=== PATIENT | female | born 1980 | race Caucasian/White ===

== ENCOUNTER → 2017-06-03 13:08 | Outpatient (CLI) | payer MEDICARE, MEDICAID, SELFPAY ==
--- NOTE | 2017-06-03 | LES_PTH ---
PATIENT: SUSIE ARORA LOC: [facility] U#:[id number] AGE/SX: 45/F ROOM: RE06/03/[address]: Dr. Eric Schmidt MD : [id number] BED: DIS: SPEC #: [id number] RECD: 06/03/17 13:06 STATUS: SADIE WANGFredy #: [id number] EDISON: 06/03/17 00:[address]: Eric Schmidt DEPT: SURGICAL PATHOLOGY RECD BY: Jaquelin Farias Tissues: Skin of eyelid, NOS Procedures: Surgery Specimen Level IV HEADER OPERATION: Excision conj. lesions PRE-OP DIAGNOSIS: Lesions TISSUE SUBMITTED: RLL MICROSCOPIC DIAGNOSIS RLL lesion, excisional biopsy: Fragments of squamous papilloma. SJ:rika 06/06/17 MICROSCOPIC DESCRIPTION Slides are reviewed. GROSS DESCRIPTION Received in fixative is one container labeled with the patient's name and designated RLL. The specimen consists of two fragments of mckeon-pink soft tissue that in aggregate measure 0.2 x 0.2 x 0.1 cm and 0.1 cm in greatest dimension. The entire specimen is submitted in one cassette. / SJ:rika 06/03/17 TC:1 CPT: 00196
== END ==
PROVIDERS: Visit Provider Ophthalmology
DX: H11.89 Other specified disorders of conjunctiva (principal)
CPT/HCPCS: 88305

== ENCOUNTER 2017-06-25 16:47 | Emergency (ER) | payer MEDICARE, MEDICAID, SELFPAY ==
[2017-06-25 16:50] VITALS: BP 153/96; PULSE 103; RESP 14; TEMP 36.2; O2SAT 96; BMI 34.2
--- NOTE | 2017-06-25 17:48 | NURSING ---
SWAPNA, CRISIS, IN WITH PATIENT
[2017-06-25 17:50] LABS: Absolute Neutrophil Count 4.2 X10^3/uL (2.0-7.7); Basophil# 0.04 X10^3/uL; Basophil% 0.6 % (0-1); Eosinophil# 0.19 X10^3/uL; Hematocrit 37.8 % (37-47); Hemoglobin 12.8 g/dl (12.0-15.0); Lymphocyte % 25.1 % (19-41); Mean Corp Hgb Conc 33.9 g/gl (32-36); Mean Corpuscular Hgb 29.8 pg (27.0-32.0); Mean Corpuscular Volume 88.1 fL (81-99); Mean Platelet Vol. 10.9 fl (6.2-12.0); Monocyte# 0.31 X10^3/uL; Monocyte% 4.9 % (0-10); Neutrophil # 4.22 X10^3/uL (2.7-7.7); Neutrophil % 66.2 % (47-70); Platelet Count 259 K/mm3 (150-450); RBC Distribution Width CV 12.5 % (11.6-14.6); RBC Distribution Width SD 40.3 fl (35.1-43.9); Red Blood Count 4.29 M/mm3 (4.2-5.4); White Blood Count 6.4 K/mm3 (4.4-11.0)
[2017-06-25 17:51] LABS: POSITIVE COUNT NO; POSITIVE DIFFERENTIAL NO; POSITIVE MORPHOLOGY NO
[2017-06-25 18:16] LABS: Anion Gap 9 (5-15); BUN 17 mg/dL (7-18); Calcium,Total 8.9 mg/dL (8.5-10.1); Chloride 104 mmol/L (98-107); EST Glomerular Filtration Rate 66 mL/min (>60); Est Glom Filt Rate - Afr Amer 80 mL/min (>60); Estimated Creatinine Clearance 74.18 ml/min; Glucose 287 mg/dL (74-106); Potassium 4.1 mmol/L (3.5-5.1); Pregnancy, Serum, hCG Quali. NEGATIVE Negative (0-9 Nonpreg); Sodium Level 136 mmol/L (136-145); Thyroid Stim Hormone (TSH) 1.23 uIU/mL (0.358-3.74)
[2017-06-25 18:25] LABS: Bacteria 0 SEEN /hpf (None Seen); Mucous, Urine 0 SEEN /hpf (<or=2+); Red Blood Cells-Urine 0 SEEN /hpf (0-5)
[2017-06-25 18:29] LABS: Color, Urine Straw (Yellow); Glucose, Dipstick 1000 mg/dl (Normal); Ketone-Dipstick 15 mg/dl (Negative); Leukocyte Esterase-Dipstick Negative /ul (Negative); Nitrite-Dipstick Negative (Negative); Occult Blood-Urine Negative /ul (Negative); Protein-Dipstick Negative (Negative); Specific Gravity, Urine 1.015 (1.002-1.030); Urine Bilirubin Dipstick Negative (Negative); Urine Clarity Sl. Cloudy (Clear); Urine Urobilinogen Normal (Normal); Urine pH 6.5 (5.0 - 8.0)
[2017-06-25] MEDS: Acetaminophen 500 MG Tablet 1000 MG PO (18:35)
[2017-06-25 18:45] LABS: Squamous Epithelial Cells - UA 0-5 SEEN /hpf (5-10)
[2017-06-25 18:47] LABS: White Blood Cells 0-5 SEEN /hpf (0-5)
[2017-06-25 18:49] LABS: Amphetamine Urine VISTA NEGATIVE (<1000 ng/mL); Barbiturate Urine VISTA NEGATIVE (< 200 ng/mL); Benzodiazepine Urine VISTA NEGATIVE (< 200 ng/mL); Cocaine Urine VISTA NEGATIVE (< 300 ng/mL); Ecstacy Urine VISTA NEGATIVE (< 500 ng/mL); Methadone Urine VISTA NEGATIVE (< 300 ng/mL); PCP Urine VISTA NEGATIVE (< 25 ng/mL); THC Urine VISTA NEGATIVE (< 50 ng/mL); Vista UDS pH Range 7
--- NOTE | 2017-06-25 18:52 | ED.VISSUMM ---
- ER Visit Summary Date of Service: 06/25/17 Chief Complaint: Suicidal ideation History of Present Illness: The patient is a 37 F with a history of bipolar and schizoaffective disorder. Patient reports multiple stressors of the last couple of weeks with several deaths in people who are close to her. She reports increase in visual and auditory hallucinations and states she is having trouble determining what is real. Patient reports she has multiple ideas on how to hurt herself, but does not have one concrete plan. She states that she knows she is not safe alone. She does have a history of diabetes and has an insulin pump. Patient states her blood sugars have been elevated recently. Physical Examination: Blood pressure is 153/96, otherwise vitals normal. Patient sitting upright in bed no acute distress. She is alert and cooperative. Head neck examination is unremarkable. Heart is regular rate and rhythm. On lung sounds are clear. Abdomen is soft nontender. Extremity examination reveals no rash or lesions. Psych exam reveals continued suicidal thoughts. She does admit to visual and auditory hallucinations. Test Results: CBC and chemistry studies are significant for glucose of 287, otherwise normal. Urinalysis shows glucose but no sign of infection. Patency test negative. TSH is normal. Tox and EtOH are negative. Emergency Department Course and Treatment: Patient is given Tylenol for mild headache. Joseline from the [facility] is here to evaluate the patient. Patient will require transfer for definitive care and treatment. Treatment Plan: [] Disposition: Transfer Impression: Suicidal ideation This note was generated with [employer] dictation software. It may contain incorrect words, spelling, and punctuation that were not noted in review of the chart prior to signing ED Disposition - Plan for ED Patient: Chief Complaint: Suicidal Referrals: Sapphire Andersen MD [Primary Care Provider] -
[2017-06-25 18:58] VITALS: BP 145/70; PULSE 80; RESP 14; O2SAT 99
[2017-06-25 19:45] VITALS: BP 144/92; PULSE 69; RESP 12; O2SAT 97
[2017-06-25 20:26] VITALS: RESP 13
[2017-06-25 21:02] VITALS: RESP 14
[2017-06-25] MEDS: Topiramate 25 MG Tablet 75 MG PO (21:02)
[2017-06-25] MEDS: RisperiDONE 1 MG Tablet PO (21:02)
[2017-06-25 22:21] VITALS: BP 144/92; PULSE 69; RESP 14; TEMP 36.2; O2SAT 98
== END 2017-06-25 22:20 | disposition short-term general hospital (02) ==
LOC: ED 18:35
PROVIDERS: Emergency Provider Emergency Medicine; Family Provider Family Medicine; PCP Family Medicine
DX: R45.851 Suicidal ideations (principal); F25.9 Schizoaffective disorder, unspecified; F32.9 Major depressive disorder, single episode, unspecified; E11.9 Type 2 diabetes mellitus without complications; J45.909 Unspecified asthma, uncomplicated; I10 Essential (primary) hypertension; Z72.0 Tobacco use; Z96.41 Presence of insulin pump (external) (internal); Z79.4 Long term (current) use of insulin; Z79.899 Other long term (current) drug therapy
CPT/HCPCS: 80048; 80307; 80320; 81001; 84443; 84703; 85025; 99285; G0480

== ENCOUNTER 2017-11-22 11:30 | Emergency (ER) | payer MEDICARE, MEDICAID, SELFPAY ==
[2017-11-22] VITALS (12 sets, daily range): BP systolic 125–160; BP diastolic 81–100; PULSE 76–119; RESP 14–18; TEMP 36.5; O2SAT 95–100; BMI 31.3
[2017-11-22 12:07] LABS: Absolute Lymphocyte Count 1.16 X10^3/ul (0.83-4.51); Absolute Neutrophil Count 5.5 X10^3/uL (2.0-7.7); Basophil# 0.04 X10^3/uL; Basophil% 0.6 % (0-1); Eosinophil# 0.01 X10^3/uL; Eosinophils% 0.1 % (0-5); Hematocrit 40.5 % (37-47); Hemoglobin 13.4 g/dl (12.0-15.0); Lymphocyte # 1.16 X10^3/ul (4.0); Lymphocyte % 16.5 % (19-41); Mean Corp Hgb Conc 33.1 g/gl (32-36); Mean Corpuscular Hgb 29.4 pg (27.0-32.0); Mean Corpuscular Volume 88.8 fL (81-99); Mean Platelet Vol. 10.7 fl (6.2-12.0); Monocyte# 0.36 X10^3/uL; Monocyte% 5.1 % (0-10); Neutrophil # 5.46 X10^3/uL (2.7-7.7); Neutrophil % 77.6 % (47-70); Platelet Count 279 K/mm3 (150-450); RBC Distribution Width CV 12.6 % (11.6-14.6); RBC Distribution Width SD 39.9 fl (35.1-43.9); Red Blood Count 4.56 M/mm3 (4.2-5.4)
[2017-11-22 12:08] LABS: POSITIVE COUNT NO; POSITIVE DIFFERENTIAL NO; POSITIVE MORPHOLOGY NO
[2017-11-22 12:25] LABS: Amphetamine Urine VISTA NEGATIVE (<1000 ng/mL); Barbiturate Urine VISTA NEGATIVE (< 200 ng/mL); Benzodiazepine Urine VISTA NEGATIVE (< 200 ng/mL); Cocaine Urine VISTA NEGATIVE (< 300 ng/mL); Ecstacy Urine VISTA NEGATIVE (< 500 ng/mL); Methadone Urine VISTA NEGATIVE (< 300 ng/mL); PCP Urine VISTA NEGATIVE (< 25 ng/mL); THC Urine VISTA NEGATIVE (< 50 ng/mL); Vista UDS pH Range 7
[2017-11-22 12:26] LABS: Anion Gap 8 (5-15); BUN 14 mg/dL (7-18); BUN/Creat Ratio 9.9 RATIO (10-20); Calcium,Total 9.5 mg/dL (8.5-10.1); Chloride 106 mmol/L (98-107); Creatinine, Serum 1.42 mg/dL (0.55-1.02); EST Glomerular Filtration Rate 44 mL/min (>60); Est Glom Filt Rate - Afr Amer 53 mL/min (>60); Estimated Creatinine Clearance 52.24 ml/min; Glucose 256 mg/dL (74-106); Pregnancy, Serum, hCG Quali. NEGATIVE Negative (0-9 Nonpreg); Sodium Level 136 mmol/L (136-145)
[2017-11-22] MEDS: busPIRone 5 MG Tablet 20 MG PO ×2 (12:39→20:01)
--- NOTE | 2017-11-22 12:50 | ED.RN ---
NOTIFIED CRISIS THAT PT IS MEDICALLY CLEARED AND READY TO BE EVALUATED
--- NOTE | 2017-11-22 13:33 | ED.RN ---
DALE IS HERE TO SEE PATIENT.
--- NOTE | 2017-11-22 15:23 | ED.RN ---
after meal bg 265. insulin pump managed per pt.
[2017-11-22 15:31] LABS: Bedside Glucose 265 mg/dL (70-110)
--- NOTE | 2017-11-22 15:34 | ED.RN ---
CALLED CRISIS TO NOTIFY THEM THAT [facility] DENIED PT; STATED THAT THEY ARE NOT APPROPRIATE
--- NOTE | 2017-11-22 15:51 | ED.VISSUMM ---
- ER Visit Summary Date of Service: 11/22/17 Chief Complaint: Suicidal ideation and paranoia History of Present Illness: The patient is a 37 F presents for suicidal ideation and paranoia. Patient has history of schizoaffective disorder and is on medication for it. One month ago she was started on Norvasc for blood pressure control, and since then she feels like it is interacting with her Topamax, as she has been having suicidal thoughts, increased depression, and hallucinations. Now for the last week she is having paranoia, and feels people are trying to poison her. She also feels she is being watched with cameras everywhere. She is only eating toast and coffee because she feels it is the only safe thing to eat. She does not have a suicidal plan, but she thinks about suicide often. She saw her primary care nurse practitioner yesterday who changed her Norvasc to HCTZ. She denies any constitutional symptoms or any other complaints other than the psychiatric complaints. Physical Examination: Vital signs: afebrile, hemodynamically stable, no hypoxia on room air General: well nourished, well developed, in no distress Skin: warm, dry, no rash, no pallor HEENT: normocephalic and atraumatic; PERRL, EOMI, moist mucous membranes Cardiovascular: regular rate and rhythm without murmurs, no peripheral edema, 2+ pulses all distal extremities Respiratory: No increased work of breathing, lungs are clear to auscultation bilaterally, no rales, rhonchi or wheezing Abdominal: Abdomen is soft, nontender with normoactive bowel sounds, no guarding or rebound, no masses MSK: Moves all extremities, no deformities, normal strength Neuro: Awake and alert, oriented ?4. No facial droop, sensation and motor function intact and symmetric Psych: Positive for depressed affect, suicidal thoughts, delusional behavior, paranoia. No homicidal thoughts. Test Results: Abnormal Lab Results 11/22/17 11/22/17 11/22/17 11:50 11:53 11:53 WBC 7.0 RBC 4.56 Hgb 13.4 Hct 40.5 MCV 88.8 MCH 29.4 MCHC 33.1 RDW 12.6 RDW Differential 39.9 Plt Count 279 MPV 10.7 Immature Gran % (Auto) 0.100 Neut % (Auto) 77.6 H Lymph % (Auto) 16.5 L [place] % (Auto) 5.1 Eos % (Auto) 0.1 Baso % (Auto) 0.6 Absolute Neuts (auto) 5.5 Absolute Lymphs (auto) 1.16 Total Counted Not Reportable Sodium 136 Potassium 4.0 Chloride 106 Carbon Dioxide 22.0 Anion Gap 8 BUN 14 Creatinine 1.42 H Estim Creat Clear Calc 52.24 Est GFR (MDRD) Af Amer 53 L Est GFR (MDRD) Non-Af 44 L BUN/Creatinine Ratio 9.9 L Glucose 256 H Calcium 9.5 Serum , Qual Urine Opiates Screen NEGATIVE Urine Methadone Screen NEGATIVE Ur Barbiturates Screen NEGATIVE Ur Phencyclidine Scrn NEGATIVE Ur Amphetamines Screen NEGATIVE U Methamphetamin-MDMA NEGATIVE U Benzodiazepines Scrn NEGATIVE Urine Cocaine Screen NEGATIVE U Cannabinoids Screen NEGATIVE Ur Drug Screen Comment Ethyl Alcohol POC Glucose 11/22/17 11/22/17 11/22/17 11:53 11:53 15:22 WBC RBC Hgb Hct MCV MCH MCHC RDW RDW Differential Plt Count MPV Immature Gran % (Auto) Neut % (Auto) Lymph % (Auto) [place] % (Auto) Eos % (Auto) Baso % (Auto) Absolute Neuts (auto) Absolute Lymphs (auto) Total Counted Sodium Potassium Chloride Carbon Dioxide Anion Gap BUN Creatinine Estim Creat Clear Calc Est GFR (MDRD) Af Amer Est GFR (MDRD) Non-Af BUN/Creatinine Ratio Glucose Calcium Serum , Qual NEGATIVE Urine Opiates Screen Urine Methadone Screen Ur Barbiturates Screen Ur Phencyclidine Scrn Ur Amphetamines Screen U Methamphetamin-MDMA U Benzodiazepines Scrn Urine Cocaine Screen U Cannabinoids Screen Ur Drug Screen Comment Ethyl Alcohol 5.0 POC Glucose 265 H Emergency Department Course and Treatment: Patient was given her morning doses of BuSpar and cyclobenzaprine, as she did not take them prior to coming to the emergency department. He states she has sciatic back pain in the cyclobenzaprine helps. Medical screening was performed, and patient was medically cleared for evaluation by crisis counselor. Patient had a negative tox and alcohol screen. negative. Patient was evaluated and deemed appropriate for inpatient management. She is currently being considered by [facility] for acceptance for further inpatient management of her psychiatric conditions. Disposition is pending acceptance by [facility] or by another facility. Treatment Plan: [] Disposition: Transfer Impression: Suicidal ideation, acute psychosis with paranoia This note was generated with [employer] dictation software. It may contain incorrect words, spelling, and punctuation that were not noted in review of the chart prior to signing ED Disposition - Plan for ED Patient: Chief Complaint: Suicidal Referrals: Sapphire Andersen MD [Primary Care Provider] -
--- NOTE | 2017-11-22 16:04 | ED.RN ---
SPOKE WITH DALE AND NOTIFIED HER THAT PT WAS DECLINED FOR ADMISSION TO [place]
--- NOTE | 2017-11-22 17:10 | ED.RN ---
DALE WITH CRISIS; AMRITA WILL BE WASTE COLLECTION DRIVER TONIGHT AND IS TAKING OVER THE CASE AND WILL BE ON WITH ANY QUESTIONS. THEY WILL UPDATE US THEY KNOW
[2017-11-22 17:40] LABS: Bedside Glucose 182 mg/dL (70-110)
[2017-11-22] MEDS: Ondansetron ODT 4 MG Tablet PO (18:05)
[2017-11-22] MEDS: Acetaminophen 500 MG Tablet 1000 MG PO ×2 (18:28→22:35)
[2017-11-22 19:46] LABS: Bedside Glucose 156 mg/dL (70-110)
[2017-11-22] MEDS: RisperiDONE 0.5 MG Tablet 2 MG PO (20:00)
[2017-11-22] MEDS: Topiramate 25 MG Tablet 75 MG PO (20:01)
--- NOTE | 2017-11-22 20:17 | ED.RN ---
THIS NURSE SPOKE WITH [facility], THEY ARE REFUSING THE PT BECAUSE SHE HAS AN INSULIN PUMP. THE NURSE AT [facility] WAS INFORMED THAT THE PT MANAGES HER OWN INSULIN PUMP. THE NURSE STATES THE DOCTORS AT [facility] ARE NOT ABLE TO MANAGE AN INSULIN PUMP
--- NOTE | 2017-11-22 21:12 | ED.RN ---
PT UPDATED THAT SHE HAS BEEN REFUSED BY [facility] AFTER THIS RN HAD CALLED REPORT. PT INFORMED OF AWAITING COUNSELOR, AND THAT SHE WOULD BE HERE IN ER UNTIL PLACED.
[2017-11-22] MEDS: Meloxicam 15 MG Tablet PO (22:35)
[2017-11-22 23:41] LABS: Bedside Glucose 220 mg/dL (70-110)
[2017-11-23 00:42] VITALS: BP 144/82; PULSE 87; RESP 15; TEMP 36.5; O2SAT 95
[2017-11-23] MEDS: Ondansetron ODT 4 MG Tablet PO (01:15)
== END 2017-11-23 01:17 ==
PROVIDERS: Emergency Provider Emergency Medicine; Family Provider Family Medicine; PCP Family Medicine
DX: R45.851 Suicidal ideations (principal); F22 Delusional disorders; F25.9 Schizoaffective disorder, unspecified; I10 Essential (primary) hypertension; Z87.891 Personal history of nicotine dependence; Z79.4 Long term (current) use of insulin; Z79.899 Other long term (current) drug therapy
CPT/HCPCS: 80048; 80307; 80320; 82962; 84703; 85025; 99284; G0480

== ENCOUNTER 2018-04-05 23:57 | Emergency (ER) | payer MEDICARE, MEDICAID, SELFPAY ==
[2018-03-26 12:36] VITALS: BMI 41.0
[2018-04-06] VITALS (9 sets, daily range): BP systolic 149–162; BP diastolic 92–100; PULSE 84–94; RESP 13–18; TEMP 36.1–36.3; O2SAT 97–100; BMI 42.1
[2018-04-06 00:52] LABS: Absolute Lymphocyte Count 1.84 X10^3/ul (0.83-4.51); Absolute Neutrophil Count 4.9 X10^3/uL (2.0-7.7); Basophil# 0.03 X10^3/uL; Basophil% 0.4 % (0-1); Eosinophil# 0.15 X10^3/uL; Hematocrit 36.1 % (37-47); Lymphocyte # 1.84 X10^3/ul (4.0); Lymphocyte % 24.7 % (19-41); Mean Corp Hgb Conc 33.2 g/gl (32-36); Mean Corpuscular Hgb 29.5 pg (27.0-32.0); Mean Corpuscular Volume 88.7 fL (81-99); Mean Platelet Vol. 10.3 fl (6.2-12.0); Monocyte# 0.47 X10^3/uL; Monocyte% 6.3 % (0-10); Neutrophil # 4.94 X10^3/uL (2.7-7.7); Neutrophil % 66.5 % (47-70); Platelet Count 221 K/mm3 (150-450); RBC Distribution Width CV 13.1 % (11.6-14.6); RBC Distribution Width SD 42.4 fl (35.1-43.9); Red Blood Count 4.07 M/mm3 (4.2-5.4); White Blood Count 7.4 K/mm3 (4.4-11.0)
[2018-04-06 00:53] LABS: POSITIVE COUNT NO; POSITIVE DIFFERENTIAL NO; POSITIVE MORPHOLOGY NO
--- NOTE | 2018-04-06 00:55 | ED.RN ---
NOTIFIED SHERIFF'S OFFICER AT [facility] THAT PT NEEDS TO BE SEEN. SHERIFF'S OFFICER STATED SHE WILL LET ROXANN KNOW.
--- NOTE | 2018-04-06 00:58 | ED.RN ---
ROXANN FROM CRISIS STATED SHE IS AT A DIFFERENT FACILITY. SHE WILL BE HERE TO SEE PT WHEN SHE IS DONE.
[2018-04-06 01:09] LABS: ALB/GLOB Ratio 1.1 RATIO (0.9-2.4); AST(SGOT) 11 U/L (15-37); Alanine Aminotransfer ALT/SGPT 19 U/L (13-56); Albumin, Serum 3.6 g/dL (3.2-5.0); Alkaline Phosphatase 113 U/L (45-117); Anion Gap 10 (5-15); BUN 16 mg/dL (7-18); BUN/Creat Ratio 16.2 RATIO (10-20); Calcium,Total 8.7 mg/dL (8.5-10.1); Chloride 103 mmol/L (98-107); Creatinine, Serum 0.99 mg/dL (0.55-1.02); EST Glomerular Filtration Rate 66 mL/min (>60); Est Glom Filt Rate - Afr Amer 80 mL/min (>60); Estimated Creatinine Clearance 74.19 ml/min; Globulin 3.4 g/dL (2.2-4.2); Glucose 180 mg/dL (74-106); Potassium 3.4 mmol/L (3.5-5.1); Sodium Level 136 mmol/L (136-145)
[2018-04-06 01:12] LABS: Pregnancy, Serum, hCG Quali. NEGATIVE Negative (0-9 Nonpreg)
[2018-04-06 01:17] LABS: Amphetamine Urine VISTA NEGATIVE (<1000 ng/mL); Barbiturate Urine VISTA NEGATIVE (< 200 ng/mL); Benzodiazepine Urine VISTA NEGATIVE (< 200 ng/mL); Cocaine Urine VISTA NEGATIVE (< 300 ng/mL); Ecstacy Urine VISTA NEGATIVE (< 500 ng/mL); Methadone Urine VISTA NEGATIVE (< 300 ng/mL); PCP Urine VISTA NEGATIVE (< 25 ng/mL); THC Urine VISTA NEGATIVE (< 50 ng/mL); Vista UDS pH Range 6
[2018-04-06 01:19] LABS: Alcohol, Blood (Medical)-Serum < 3.0 mg/dL
--- NOTE | 2018-04-06 01:41 | ED.RN ---
PT ARRIVES WITH THE FOLLOWING BELONGINGS: PINK T SHIRT, GARNER HOODED SWEATSHIRT, GARNER TENNIS SHOES, SWEATPANTS, UNDERWEAR, AND BRA. BLUE DUFFLE BAG WITH: GEL PENS IN GEL PEN CASE, CELLPHONE AND DOCUMENTATION CONSULTANT, MED LIST, BOOKS, EXTRA PANTS, UNDERWEAR, SOCKS, SHIRTS AND A SWEATER. ALL BELONGINGS LABELED AND PLACED IN BELONGING BIN.
[2018-04-06 01:42] LABS: Bedside Glucose 123 mg/dL (70-110)
--- NOTE | 2018-04-06 01:46 | ED.RN ---
PT WITH TWO QUARTER SIZED LERNER ON LEFT FOREARM THAT PT HAD SCRATCHED SELF WITH RAZOR BLADE. WOUND DRESSED BY THIS RN.
--- NOTE | 2018-04-06 01:49 | ED.VISSUMM ---
- ER Visit Summary Date of Service: 04/06/18 Chief Complaint: Suicidal ideation History of Present Illness: The patient is a 38 F with a history of schizoaffective disorder. She is hearing voices that are telling her to overdose or to cut her wrists. She did have some abrasions to her wrists but did not cut deeply. She has a history of diabetes and wears an insulin pump. Physical Examination: Blood pressure 162/100. Otherwise vitals normal. Afebrile. Alert and oriented. No acute distress. Depressed mood and flat affect. Heart regular. Lungs clear. Skin appears normal except for some abrasions to her wrists. Nothing deep. Test Results: Labs, test, drug screen, alcohol all unremarkable. Emergency Department Course and Treatment: Patient had suicide precautions. No history of ingestion or other attempts. No other diagnostic testing is indicated. Patient will be monitored. Crisis was contacted for evaluation and placement. Treatment Plan: As above Disposition: Transfer pending crisis evaluation Impression: 1. Suicidal ideation This note was generated with [employer] dictation software. It may contain incorrect words, spelling, and punctuation that were not noted in review of the chart prior to signing ED Disposition - Plan for ED Patient: Chief Complaint: Suicidal Referrals: Sapphire Andersen MD [Primary Care Provider] -
--- NOTE | 2018-04-06 04:12 | ED.RN ---
ROXANN FROM CRISIS CALLED AND STATED SHE IS ON THE WAY TO SEE THIS PT.
--- NOTE | 2018-04-06 04:27 | ED.RN ---
ROXANN FROM CRISIS IS HERE TO SEE PT.
--- NOTE | 2018-04-06 04:43 | ED.RN ---
PT ADJUSTING INSULIN PUMP. PT GIVEN ZAHIRA CRACKERS AND ORANGE JUICE. PT INFORMED THAT IN 20-30 MINUTES WE WILL RECHECK BLOOD SUGAR. IF IT REMAINS LOW WE WILL DISCONNECT INSULIN PUMP PER DR WISDOM
[2018-04-06 04:46] LABS: Bedside Glucose 48 mg/dL (70-110)
[2018-04-06 05:11] LABS: Bedside Glucose 101 mg/dL (70-110)
--- NOTE | 2018-04-06 06:18 | ED.RN ---
[facility] CALLED CONCERNED WITH PT INSURANCE. REGISTRATION FAXING INSURANCE INFORMATION TO [facility]
[2018-04-06] MEDS: Insulin Lispro 100 UNIT/ML INSULN.PEN 8 UNIT SC (07:36)
[2018-04-06 08:26] LABS: Bedside Glucose 313 mg/dL (70-110)
== END 2018-04-06 08:25 ==
PROVIDERS: Emergency Provider Emergency Medicine; Family Provider Family Medicine; PCP Family Medicine
DX: R45.851 Suicidal ideations (principal); E10.9 Type 1 diabetes mellitus without complications; S60.812A Abrasion of left wrist, initial encounter; S60.811A Abrasion of right wrist, initial encounter; I10 Essential (primary) hypertension; F25.9 Schizoaffective disorder, unspecified; Z96.41 Presence of insulin pump (external) (internal); Z79.4 Long term (current) use of insulin; Z79.899 Other long term (current) drug therapy; W26.9XXA Contact with unspecified sharp object(s), initial encounter; Y93.9 Activity, unspecified; Y92.9 Unspecified place or not applicable; Y99.9 Unspecified external cause status
CPT/HCPCS: 80053; 80307; 80320; 82962; 84703; 85025; 99285; G0480

== ENCOUNTER 2018-07-19 11:46 | Emergency (ER) | payer MEDICARE, SELFPAY ==
[2018-04-06] VITALS: BMI 42.1
[2018-07-19 11:48] VITALS: BP 128/75; PULSE 87; RESP 16; TEMP 36.7; O2SAT 97; BMI 41.1
--- NOTE | 2018-07-19 12:00 | CM.ED ---
SOCIAL WORK NOTE CALL TO THE [facility] TO INQUIRE ABOUT PATIENT AND PLAN, SPOKE WITH DALE. PER MARCE HUNTER TO BE OVER TO ASSESS PATIENT AND ANTICIPATE PATIENT WILL REQUIRE INPATIENT PSYCH HOSPITALIZATION. PATIENT IS HEARING VOICES, RECENT HX OF SUICIDE ATTEMPT. PER [facility]ALE, DOES NOT BELIEVE PATIENT TO BE SUICIDAL OR HOMICIDAL AT THIS TIME. UPDATED RECEIVER STOCKER AND CHARGE NURSE. WILL FOLLOW AND ASSIST NEEDED. JAE VELASQUEZ, SUPERINTENDENT SERVICE, DATA WAREHOUSING ENGINEER.
[2018-07-19 12:12] LABS: Absolute Neutrophil Count 5.2 X10^3/uL (2.0-7.7); Basophil# 0.03 X10^3/uL; Basophil% 0.4 % (0-1); Eosinophil# 0.06 X10^3/uL; Eosinophils% 0.9 % (0-5); Hemoglobin 12.5 g/dl (12.0-15.0); Mean Corp Hgb Conc 32.9 g/gl (32-36); Mean Corpuscular Hgb 28.3 pg (27.0-32.0); Mean Corpuscular Volume 86.2 fL (81-99); Monocyte# 0.25 X10^3/uL; Monocyte% 3.6 % (0-10); Neutrophil # 5.24 X10^3/uL (2.7-7.7); Neutrophil % 74.8 % (47-70); Platelet Count 238 K/mm3 (150-450); RBC Distribution Width CV 12.9 % (11.6-14.6); RBC Distribution Width SD 40.7 fl (35.1-43.9); Red Blood Count 4.41 M/mm3 (4.2-5.4)
[2018-07-19 12:14] LABS: Bacteria 0 SEEN /hpf (None Seen); Mucous, Urine 0 SEEN /hpf (<or=2+); Red Blood Cells-Urine 0 SEEN /hpf (0-5); White Blood Cells 0 SEEN /hpf (0-5)
[2018-07-19 12:18] LABS: POSITIVE COUNT NO; POSITIVE DIFFERENTIAL NO; POSITIVE MORPHOLOGY NO
[2018-07-19 12:20] LABS: Color, Urine Yellow (Yellow); Glucose, Dipstick Normal (Normal); Ketone-Dipstick Negative (Negative); Leukocyte Esterase-Dipstick Negative /ul (Negative); Nitrite-Dipstick Negative (Negative); Occult Blood-Urine Negative /ul (Negative); Protein-Dipstick Negative (Negative); Urine Bilirubin Dipstick Negative (Negative); Urine Clarity Sl. Cloudy (Clear); Urine Urobilinogen Normal (Normal)
[2018-07-19 12:21] LABS: Anion Gap 8 (5-15); BUN 14 mg/dL (7-18); Calcium,Total 8.6 mg/dL (8.5-10.1); Chloride 104 mmol/L (98-107); Creatinine, Serum 1.17 mg/dL (0.55-1.02); EST Glomerular Filtration Rate 55 mL/min (>60); Est Glom Filt Rate - Afr Amer 66 mL/min (>60); Estimated Creatinine Clearance 62.78 ml/min; Glucose 242 mg/dL (74-106); Potassium 3.9 mmol/L (3.5-5.1); Sodium Level 136 mmol/L (136-145)
[2018-07-19 12:22] LABS: Squamous Epithelial Cells - UA 0-5 SEEN /hpf (5-10)
--- NOTE | 2018-07-19 12:28 | NURSING ---
MARCE, CRISIS, HERE FOR PATIENT
--- NOTE | 2018-07-19 12:44 | ED.DCSUM_ITS ---
- ER Visit Summary Date of Service: 07/19/18 Chief Complaint: Paranoid ideations History of Present Illness: The patient is a 38 F who presents with increasing paranoid ideations over the past week. Patient states she feels like everybody is trying to kill her. Patient denies any suicidal or homicidal ideations. Patient admits to some auditory and visual hallucinations. Patient states she has a history of schizoaffective disorder. Physical Examination: Vital signs are stable. Patient is afebrile. Patient is in no acute distress. Pupils are equal, round, and reactive to light bilaterally. Extraocular muscles are intact. Conjunctiva is clear. Oral mucosa is pink and moist. Oropharynx is clear. Neck is supple. Trachea is midline. There is no JVD noted. Heart was regular rate and rhythm. Lungs are clear and equal bilateral. Abdomen is soft and nontender. Cranial nerves II through XII are intact. There are no focal motor or sensory deficits noted. Test Results: CBC, basic metabolic profile, urinalysis, urine tox screen, serum hCG, and serum alcohol level were obtained and were all within normal limits. Emergency Department Course and Treatment: Crisis counselor was in to evaluate the patient. She was informed that the patient has been taking extra doses of her buspirone to try to get rid of the visual and auditory hallucinations. Crisis will attempt to transfer the patient to a mental health facility. Patient understood and was agreeable with the plan. All questions were answered. Disposition: Transfer to mental health facility Impression: Schizoaffective disorder This note was generated with [email or web address] dictation software. It may contain incorrect words, spelling, and punctuation that were not noted in review of the chart prior to signing ED Disposition - Plan for ED Patient: Disposition: Psychiatric Hospital or Unit Diagnosis: Schizoaffective disorder Referrals: Sapphire Andersen MD [Primary Care Provider] -
[2018-07-19 12:51] LABS: Pregnancy, Serum, hCG Quali. NEGATIVE Negative (0-9 Nonpreg)
[2018-07-19 13:11] LABS: Amphetamine Urine VISTA NEGATIVE (<1000 ng/mL); Barbiturate Urine VISTA NEGATIVE (< 200 ng/mL); Benzodiazepine Urine VISTA NEGATIVE (< 200 ng/mL); Cocaine Urine VISTA NEGATIVE (< 300 ng/mL); Ecstacy Urine VISTA NEGATIVE (< 500 ng/mL); Methadone Urine VISTA NEGATIVE (< 300 ng/mL); PCP Urine VISTA NEGATIVE (< 25 ng/mL); THC Urine VISTA NEGATIVE (< 50 ng/mL); Vista UDS pH Range 7
--- NOTE | 2018-07-19 13:45 | CM.ED ---
SOCIAL WORK NOTE MARCE FROM CRISIS HERE AND ASSESSED PT. PT REQUIRING INPATIENT PSYCH HOSPITALIZATION. MARCE TO WORK ON PLACEMENT AT THIS TIME. JAE VELASQUEZ, MACHINE CAPTAIN, CONCERT PIANIST.
--- NOTE | 2018-07-19 15:19 | ED.RN ---
PT ADAMANTLY DENIES TAKING ANY MEDICATIONS NOT ON MED LIST FROM [facility] OTHER THAN INSULIN AND INVEGA INJ. PT HOWEVER TOLD COUNSELOR SHE IS TAKING LARGE AMOUNTS OF BUSPAR TO COMBAT ANXIETY. THIS RN AND COUNSELOR WENT IN TO ROOM TOGETHER, PT NOW ADMITS TO THIS RN SHE IS TAKING BUSPAR WELL. SHORTLY AFTER PT BECAME TEARFUL, REQUESTS DOSE OF BUSPAR FOR ANXIETY. REQUEST RELAYED TO .
[2018-07-19 15:43] VITALS: BP 151/88; PULSE 88; RESP 16; O2SAT 97
--- NOTE | 2018-07-19 17:08 | CM.ED ---
SOCIAL WORK NOTE UPDATED BY MARCE WITH CRISIS, PT ACCEPTED TO [facility]. [facility] TO UPDATE NURSING AT THIS TIME. JAE VELASQUEZ, ISOTOPE TECHNICIAN, MERCHANDISE ADJUSTMENT CLERK.
--- NOTE | 2018-07-19 18:00 | NURSING ---
[facility] 310 BED 2
--- NOTE | 2018-07-19 18:15 | NURSING ---
CALLED [facility] FOR TRANSPORT. ETA IS ABOUT 1/2 HR
[2018-07-19] MEDS: Ondansetron ODT 4 MG Tablet PO (19:04)
[2018-07-19 19:07] VITALS: BP 137/71; PULSE 87; RESP 16; O2SAT 97
== END 2018-07-19 19:09 ==
PROVIDERS: Emergency Provider Emergency Medicine; Family Provider Family Medicine; PCP Family Medicine
DX: F25.9 Schizoaffective disorder, unspecified (principal); F41.9 Anxiety disorder, unspecified; F43.10 Post-traumatic stress disorder, unspecified; F31.9 Bipolar disorder, unspecified; E03.9 Hypothyroidism, unspecified; I10 Essential (primary) hypertension; E11.9 Type 2 diabetes mellitus without complications; Z96.41 Presence of insulin pump (external) (internal); Z79.84 Long term (current) use of oral hypoglycemic drugs; Z79.899 Other long term (current) drug therapy
CPT/HCPCS: 36415; 80048; 80307; 80320; 81001; 84703; 85025; 99283; G0480

== ENCOUNTER 2019-01-06 16:47 | Emergency (ER) | payer MEDICARE, SELFPAY ==
[2019-01-06 16:50] VITALS: BP 118/77; PULSE 68; RESP 16; TEMP 36.8; O2SAT 98; BMI 39.4
[2019-01-06] MEDS: 0.9% Normal Saline 1,000 ML 1000 ML IV ×2 (17:00→18:30)
--- NOTE | 2019-01-06 17:22 | EKG12_ITS ---
Test Reason : DYSRHYTHMIA Blood Pressure : / mmHG Vent. Rate : 080 BPM Atrial Rate : 080 BPM P-R Int : 152 ms QRS Dur : 096 ms QT Int : 444 ms P-R-T Axes : 055 020 008 degrees QTc Int : 512 ms Normal sinus rhythm Prolonged QT Abnormal ECG Confirmed by SYD WILLARD ([id number]), brands editor MARC HART ([id number]) on 01/15/2019 2:50:39 PM Referred By: JENS Confirmed By:SYD WILLARD
[2019-01-06 17:40] LABS: Absolute Lymphocyte Count 1.41 X10^3/uL (0.83-4.51); Absolute Neutrophil Count 8.2 X10^3/uL (2.0-7.7); Basophil# 0.07 X10^3/uL; Basophil% 0.7 % (0-1); Eosinophil# 0.16 X10^3/uL; Eosinophils% 1.6 % (0-5); Hematocrit 36.8 % (37-47); Hemoglobin 11.9 g/dL (12.0-15.0); Lymphocyte # 1.41 X10^3/ul (4.0); Lymphocyte % 13.7 % (19-41); Mean Corp Hgb Conc 32.3 g/dL (32-36); Mean Corpuscular Hgb 28.1 pg (27.0-32.0); Mean Platelet Vol. 10.9 fl (6.2-12.0); Monocyte# 0.48 X10^3/uL; Monocyte% 4.7 % (0-10); NRBC Flagged by Analyzer 0 % (0-5); Neutrophil # 8.15 X10^3/uL (2.7-7.7); Neutrophil % 78.8 % (47-70); Platelet Count 248 K/mm3 (150-450); RBC Distribution Width CV 13.2 % (11.6-14.6); RBC Distribution Width SD 41.4 fl (35.1-43.9); Red Blood Count 4.23 M/mm3 (4.2-5.4); White Blood Count 10.3 K/mm3 (4.4-11.0)
--- NOTE | 2019-01-06 17:40 | RAD_ITS ---
STUDY: X-RAY CHEST REASON FOR EXAM: Female, 38 years old. Dizziness, history of hypertension TECHNIQUE: PA and lateral views of the chest. COMPARISON: None. FINDINGS: The lungs are clear and expanded. There is no demonstrated pleural abnormality. Normal size heart. Normal mediastinum and yehuda. Normal visualized pulmonary arteries. Normal visualized aortic arch and descending thoracic aorta. There are mild degenerative changes of the thoracic spine. Normal visualized ribs, clavicles, and shoulders. There is no demonstrated abnormality of the visualized soft tissue structures of the upper abdomen. RAD/Chest PA and Lateral IMPRESSION: Nonacute x-ray examination of the chest. Electronically Signed: Raghav Jarrett MD ([place]) at 17:50 EDT , Service support ,
[2019-01-06 17:48] LABS: International Normalized Ratio 1.1; Prothrombin Time (Protime)PT. 13.5 SECONDS (11.7-14.9)
[2019-01-06 17:49] LABS: Partial Thromboplast Time 29.5 Seconds (24.1-36.2)
[2019-01-06 17:58] LABS: Anion Gap 8 (5-15); BUN 8 mg/dL (7-18); BUN/Creat Ratio 5.8 RATIO (10-20); Calcium,Total 8.8 mg/dL (8.5-10.1); Chloride 109 mmol/L (98-107); Creatinine, Serum 1.37 mg/dL (0.55-1.02); EST Glomerular Filtration Rate 45 mL/min (>60); Est Glom Filt Rate - Afr Amer 55 mL/min (>60); Estimated Creatinine Clearance 55.61 ml/min; Glucose 92 mg/dL (74-106); Potassium 4.4 mmol/L (3.5-5.1); Sodium Level 142 mmol/L (136-145)
[2019-01-06 19:03] VITALS: BP 141/86; BP 145/74; PULSE 70; PULSE 72; PULSE 75
[2019-01-06 19:06] LABS: Bedside Glucose 124 mg/dL (70-110)
--- NOTE | 2019-01-06 19:13 | ED.DCSUM_ITS ---
- ER Visit Summary Date of Service: 01/06/19 Chief Complaint: Dizziness and feeling ill History of Present Illness: The patient is a 38 F who presents with dizziness and feeling ill that began today. Patient [place] and started to feel lightheaded. Patient went to a first-aid station and her blood pressure there was 86/50. Patient states she tried to drink some fluids without any improvement. Patient states she also ate something which did not improve her symptoms. Patient states her symptoms are worse when she was in the heat. Patient denies any paresthesias or weakness. Patient admits to some nausea but denies any vomiting. Physical Examination: Vital signs are stable. Patient is afebrile. Patient is in no acute distress. Oral mucosa is pink and moist. Neck is supple. Trachea is midline. There is no JVD noted. Heart was regular rate and rhythm. Lungs are clear and equal bilaterally. Abdomen is soft. Bowel sounds are normal. There is no tenderness. Cranial nerves II through XII are intact. There are no focal motor or sensory deficits noted. Test Results: CBC showed a mild anemia with a hemoglobin of 11.9 and hematocrit 36.8. Creatinine was 1.37 which was only slightly increased from previous resu lt. EKG showed normal sinus rhythm with a rate of 80. There are no acute ST or T wave changes. Emergency Department Course and Treatment: Patient was given IV fluids here. Orthostatic vital signs were obtained and were normal. Patient was feeling better on reevaluation. Patient was instructed to drink plenty of fluids. Patient was instructed to follow-up with her primary care physician in 5 to 7 days. Patient understood and was agreeable with the plan. All questions were answered. Disposition: Discharge home Impression: Dehydration This note was generated with [employer] dictation software. It may contain incorrect words, spelling, and punctuation that were not noted in review of the chart prior to signing ED Disposition - Plan for ED Patient: Disposition: Home or Assisted Living Diagnosis: Dehydration Instructions: DEHYDRATION (5y-Adult) Referrals: Sapphire Nayak DO [Primary Care Provider] - 3-5 Days
== END 2019-01-06 19:43 | disposition home or self-care (01) ==
PROVIDERS: Emergency Provider Emergency Medicine; Family Provider Family Medicine; PCP Family Medicine
DX: E86.0 Dehydration (principal); E66.9 Obesity, unspecified; E11.9 Type 2 diabetes mellitus without complications; I10 Essential (primary) hypertension
CPT/HCPCS: 71046; 80048; 82962; 85025; 85610; 85730; 93005; 96360; 96361; 99285; J7030; A4216

== ENCOUNTER → 2021-04-28 13:30 | Outpatient (CLI) | payer MEDICARE, SELFPAY | PROVIDERS: PCP Family Medicine; Referring Provider Physician Assistant Surgical; Visit Provider Physician Assistant Surgical | DX: U07.1 COVID-19 (principal) | CPT/HCPCS: 87635; U0005; U0003 ==

== ENCOUNTER 2022-06-13 13:26 | Emergency (ER) | payer MEDICARE, MEDICAID, SELFPAY ==
[2022-06-13 13:26] VITALS: BP 137/89; PULSE 78; RESP 16; TEMP 36.4; O2SAT 98; BMI 43.2
--- NOTE | 2022-06-13 13:57 | CT_ITS ---
INDICATION: flank pain-RIGHT EXAMINATION: CT ABDOMEN AND PELVIS WITHOUT CONTRAST - CT Abdomen And Pelvis W/O Contrast Injection TECHNIQUE: Helically acquired images were obtained of the abdomen and pelvis without oral or IV contrast. A radiation dose optimization technique was used for this scan. IV Contrast dosage and agent: None. Oral contrast: None. COMPARISON: None. FINDINGS: LOWER CHEST: There is minimal bibasilar atelectasis and/or scarring. There are small bilateral pleural effusions. No cardiomegaly or pericardial effusion. The lack of intravenous contrast limits evaluation of solid visceral organs. LIVER: The liver is diffusely low in attenuation consistent with fatty infiltration. There is hepatomegaly. GALLBLADDER AND BILIARY TREE: No calcified gallstones. No gallbladder distension or wall edema. No intra- or extrahepatic biliary ductal dilation. PANCREAS: No focal cystic or solid mass. SPLEEN: Normal size without focal cystic or solid mass. ADRENAL GLANDS: No nodules. KIDNEYS AND URETERS: Normal renal size and position. No hydronephrosis. PERITONEUM: No ascites or free air. No other fluid collection. BOWEL: No evidence of acute appendicitis. No stomach or bowel distension. No focal inflammatory change. There are scattered diverticula arising from the colon. LYMPH NODES: No enlarged mesenteric or retroperitoneal lymph nodes. VESSELS: Aorta is non-dilated. There are peripheral calcifications of the abdominal aorta. URINARY BLADDER: Unremarkable. REPRODUCTIVE ORGANS: No pelvic masses. ABDOMINAL WALL: No discrete abdominal or pelvic wall hernia. BONES: There are degenerative changes of the visualized thoracic and lumbar spine.. CT/Abdomen/Pelvis without Cont IMPRESSION: Fatty infiltration of the liver associated with hepatomegaly. Small bilateral pleural effusions associated with minimal bibasilar atelectasis and/or scarring. Electronically Signed: Yuly Silveira MD at 15:13 EST ,
--- NOTE | 2022-06-13 13:59 | EDS_ITS ---
HPI <BISI Tse - Last Filed: 06/13/22 15:45> History of Present Illness Chief Complaint: Flank Pain Narrative Narrative: Patient is a 42-year-old female with history of diabetes, schizoaffective disorder, hypertension, hypothyroidism who presents to the emergency department with 1 week of abdominal pain that then radiated to bilateral flanks. Patient states that she was at urgent care, and secondary to the pain being around her kidneys they recommended she go to the emergency department. Patient denies any fevers however does have subjective chills. Denies any vomiting however has nausea. PFSH <BISI Tse - Last Filed: 06/13/22 15:45> [facility] Medical History (Updated 06/13/22 @ 15:[address] Edyta Crews, ) Asthma Diabetes Diarrhea Fatigue Hay fever HTN (hypertension) Knee pain Schizoaffective disorder, bipolar type Severe headache SOB (shortness of breath) Thyroid disease Home Medications benztropine 2 mg tablet 2 mg PO BID 02/12/14 [History Last Taken Unknown] enalapril maleate 20 mg tablet 10 mg PO DAILY 02/12/14 [History Last Taken Unknown] levothyroxine 175 mcg tablet 150 mcg PO MOTUWETHFRSA 02/12/14 [History Last Taken Unknown] hydrochlorothiazide 25 mg tablet 25 mg PO DAILY 11/22/17 [History Last Taken Unknown] propranolol 10 mg tablet 10 mg PO BID 28 days #56 tabs 03/26/18 [History Last Taken Unknown] Insulin Basal Pump (Pt's Own) [Pump, Basal] See Protocol SQ CONT 07/19/18 [History Last Taken Unknown] metformin 500 mg tablet 500 mg PO BID 07/19/18 [History Last Taken Unknown] paliperidone palmitate 234 mg/1.5 mL intramuscular syringe (Invega Sustenna) 234 mg IM QMONTH 07/19/18 [History Last Taken Unknown] sertraline 50 mg tablet 75 mg PO DAILY 07/19/18 [History Last Taken Unknown] cyclobenzaprine 10 mg tablet 10 mg PO TID PRN Muscle Spasm #14 TABLETS 06/13/22 [Rx Last Taken Unknown] lamotrigine 200 mg tablet 200 mg PO DAILY 06/13/22 [History Last Taken Unknown] levothyroxine 88 mcg tablet 88 mcg PO 1XD 06/13/22 [History Last Taken Unknown] lurasidone 80 mg tablet (Latuda) 80 mg PO DAILY 06/13/22 [History Last Taken Unknown] naproxen 500 mg tablet 500 mg PO BID #20 tabs 06/13/22 [Rx Last Taken Unknown] Allergy/AdvReac Type Severity Reaction Status Date / Time amlodipine [From Norvasc] Allergy Unknown Verified 06/13/22 13:28 amoxicillin Allergy Hives Verified 06/13/22 13:28 grass pollen Allergy Unknown Verified 06/13/22 13:28 house dust Allergy Unknown Verified 06/13/22 13:28 phenylephrine Allergy Other Verified 06/13/22 13:28 [From Afrin Childrens (phenylephrin)] venlafaxine HCl Allergy Other Verified 06/13/22 13:28 [From Effexor] haloperidol [From Haldol] AdvReac Upset Verified 06/13/22 13:28 Stomach Family History (Updated 03/26/18 @ 12:43 by Caridad Lance) Other Cancer Diabetes FH: mental illness Hypertension Thyroid disorder Surgical History (Updated 03/26/18 @ 12:42 by Caridad Lance) H/O eye surgery Social History (Updated 03/26/18 @ 16:16 by Yamileth LOPEZ, PA) Smoking Status: Former smoker alcohol intake: never ROS <BISI Tse - Last Filed: 06/13/22 15:45> ROS ED ROS Narrative Constitutional: Negative for fever, weight loss, weakness. Positive for chills Eyes: Negative for vision loss, vision change, double vision ENT: Negative for any sore throat, ear pain, congestion Cardiovascular: Negative for any chest pain, tightness, palpitations Respiratory: Negative for any cough, sputum production, hemoptysis, dyspnea, dyspnea on exertion, orthopnea Gastrointestinal: Negative for any abdominal pain, vomiting, diarrhea, constipation, blood in stool, blood in vomit. Positive for nausea : Negative for any urinary frequency, dysuria, retention, blood in urine Muscle skeletal: Negative for any muscle joint pain, stiffness, myalgias, arthralgias, neck pain. Positive for mid back pain. Neurological: Negative for any headache, syncope, numbness or tingling, dizziness Skin: Negative for any rashes, lumps, itching, abrasions, lacerations Psychiatric: Negative for any depression, anxiety, stress, suicidal ideation, homicidal ideation Hematologic: Negative for any easy bruising, excessive bruising, easy bleeding Allergies: Negative for any eczema, hives, rash EXAM <BISI Tse - Last Filed: 06/13/22 15:45> Physical Exam Narrative Exam Narrative: Vital signs reviewed. Patient sitting in room comfortably. No distress. HEET: Head normocephalic atraumatic, TMs clear bilaterally. Posterior pharynx is clear, moist mucous membranes. Nares clear bilaterally. Neck: Supple with no lymphadenopathy or tenderness. No signs of meningismus, negative jolt sign. Cardiac: Regular rate and rhythm no murmurs gallops or rubs, equal peripheral pulses bilaterally. Respiratory: Lungs clear to auscultation bilaterally. No chest tenderness. Abdomen: Soft, nontender, nondistended. No abdominal bruit or pulsatile masses. No hepatosplenomegaly Extremities: No peripheral edema, no signs of gross trauma or deformity. Active full range of motion of all extremities. Neuro: Cranial nerves II through XII intact, no focal neurological deficits. Skin: Clean dry and intact with no rash, purpura, petechiae, vesicles or pustule s. Backs/flank: Patient did have tenderness to the CVA areas bilateral no signs or symptoms of trauma., no midline spinal tenderness, no deformity. Psych: Normal mood and affect. No SI, HI or acute psychosis. Const Vital Signs: 06/13/22 13:26 Temperature 97.6 F L Temperature Source Temporal Pulse Rate 78 Respiratory Rate 16 Blood Pressure 137/89 H Blood Pressure Mean 105 Pulse Ox 98 Oxygen Delivery Method Room Air Positive well nourished and well developed General Appearance ED: well developed <Dr. Edyta Crews DO - Last Filed: 06/13/22 15:45> Physical Exam Const Vital Signs: 06/13/22 13:26 Temperature 97.6 F L Temperature Source Temporal Pulse Rate 78 Respiratory Rate 16 Blood Pressure 137/89 H Blood Pressure Mean 105 Pulse Ox 98 Oxygen Delivery Method Room Air MDM <BISI Tse - Last Filed: 06/13/22 15:45> MDM Lab Data Labs: Laboratory Results - last 24 hr 06/13/22 06/13/22 06/13/22 14:40 14:40 15:15 WBC 6.8 RBC 4.34 Hgb 12.4 Hct 37.6 MCV 86.6 MCH 28.6 MCHC 33.0 RDW Std Deviation 40.3 RDW Coeff of Giuseppe 12.8 Plt Count 270 MPV 10.4 Immature Gran % (Auto) 0.600 Neut % (Auto) 67.2 Lymph % (Auto) 23.2 [place] % (Auto) 5.9 Eos % (Auto) 2.4 Baso % (Auto) 0.7 Absolute Neuts (auto) 4.6 Absolute Lymphs (auto) 1.58 Nucleated RBC % 0 Sodium 134 L Potassium 3.8 Chloride 99 Carbon Dioxide 26.0 Anion Gap 9 BUN 10 Creatinine 1.10 H Estim Creat Clear Calc 64.13 Est GFR (MDRD) Af Amer 70 Est GFR (MDRD) Non-Af 58 L BUN/Creatinine Ratio 9.1 L Glucose 107 H Calcium 9.1 Total Bilirubin 0.50 AST 18 ALT 30 Alkaline Phosphatase 80 Total Protein 7.2 Albumin 4.0 Globulin 3.2 Albumin/Globulin Ratio 1.2 Lipase 34 L Urine Color Yellow Urine Clarity Clear Urine pH 6.0 Ur Specific [place] 1.010 Urine Protein Negative Urine Glucose (UA) Normal Urine Ketones Negative Urine Occult Blood Negative Urine Nitrite Negative Urine Bilirubin Negative Urine Urobilinogen Normal Ur Leukocyte Esterase 500 H Urine RBC 0 SEEN Urine WBC 5-10 SEEN Ur Squamous Epith Cells 0-5 SEEN Urine Bacteria RARE Urine Mucus 0 SEEN Urine Test Negative Radiography Diagnostic Testing: Clinical Impression(s) from Imaging Studies Abdomen/Pelvis CT 06/13/22 13:57 IMPRESSION: Fatty infiltration of the liver associated with hepatomegaly. Small bilateral pleural effusions associated with minimal bibasilar atelectasis and/or scarring. Electronically Signed: Yuly Silveira MD at 15:13 EST , Treatment and Re-Evaluation Narrative: All radiologic examinations were read, reviewed by the emergency department attending. From these reads, a plan of care will be put in place. Patient appears generally well, patient is no distress. Patient presents to the emergency department with complaints of bilateral flank pain has been ongoing for the last week. Patient received a abdominal work-up concerning for possible pyelonephrosis, possible obstructing renal calculi. Patient's laboratory studies show a normal CBC, patient's chemistries were unremarkable. Patient did receive CT scan of the abdomen pelvis without contrast, this did show fatty infiltration of the liver associated with hepatomegaly. Small bilateral pleural effusions associated with minimal bibasilar atelectasis and/or scarring. This was a negative examination. Patient on reassessment appears to be in no distress. Patient's urinalysis negative for any infection. A urine culture was sent by the urgent care. At this time, patient be diagnosed with flank pain, uncertain etiology, lumbar back strain. She will be given naproxen, Flexeril for home. She is instructed return for any worsening symptoms. Patient stable for discharge <Dr. Edyta Crews, DO - Last Filed: 06/13/22 15:45> [facility] Narrative Medical decision making narrative: I have personally performed a face to face assessment of the patient and have reviewed the KO Note. I performed a substantive portion of the visit including all aspects of the following. My simmons findings include: History is [patient presents to the emergency department with complaint of pain in her back. Patient states initially 6 days ago she had lower abdomen pain that seem to then moved to her back. She complains of pain that is currently a 3 out of 10. She went to urgent care and was referred to the emergency department. Patient has had nausea but no vomiting. She denies urinary symptoms. She denies being but has not had a period for several months which is not unusual for her. Patient is a type I diabetic. Patient complains of pain is made worse by eating. Patient has not had any abdominal surgeries.] Exam is [HEENT-PERRLA, EOMI. Cranial nerves II through XII grossly intact. TMs clear. Mucous membranes moist. No adenopathy. Cardiovascular-regular rate and rhythm without murmur or ectopy Lungs-clear to auscultation, chest wall stable without crepitus or subcu emphysema Abdomen-normoactive bowel sounds, soft, tenderness to palpation over the right upper quadrant with some guarding. Negative Fontanez sign. There is no rebound, rigidity, peritoneal signs. No rebound or rigidity, no peritoneal signs. Extremities-intact ?4, normal range of motion, normal pulses, atraumatic] Medical Decison Making [had normal lab work-up including LFTs. Lipase was normal. Urinalysis unremarkable and urine negative. CT scan of the abdomen pelvis without contrast was unremarkable. At this time etiology of her abdomen and back pain unclear. Patient will be given a prescription for napr oxen and Flexeril and advised to follow-up with primary care physician within next 3 to 5 days. She is advised to return if worsening pain, fever, vomiting, or condition should worsen anyway.] Other additions or changes: [None] Lab Data Labs: Laboratory Results - last 24 hr 06/13/22 06/13/22 06/13/22 14:40 14:40 15:15 WBC 6.8 RBC 4.34 Hgb 12.4 Hct 37.6 MCV 86.6 MCH 28.6 MCHC 33.0 RDW Std Deviation 40.3 RDW Coeff of Giuseppe 12.8 Plt Count 270 MPV 10.4 Immature Gran % (Auto) 0.600 Neut % (Auto) 67.2 Lymph % (Auto) 23.2 [place] % (Auto) 5.9 Eos % (Auto) 2.4 Baso % (Auto) 0.7 Absolute Neuts (auto) 4.6 Absolute Lymphs (auto) 1.58 Nucleated RBC % 0 Sodium 134 L Potassium 3.8 Chloride 99 Carbon Dioxide 26.0 Anion Gap 9 BUN 10 Creatinine 1.10 H Estim Creat Clear Calc 64.13 Est GFR (MDRD) Af Amer 70 Est GFR (MDRD) Non-Af 58 L BUN/Creatinine Ratio 9.1 L Glucose 107 H Calcium 9.1 Total Bilirubin 0.50 AST 18 ALT 30 Alkaline Phosphatase 80 Total Protein 7.2 Albumin 4.0 Globulin 3.2 Albumin/Globulin Ratio 1.2 Lipase 34 L Urine Color Yellow Urine Clarity Clear Urine pH 6.0 Ur Specific [place] 1.010 Urine Protein Negative Urine Glucose (UA) Normal Urine Ketones Negative Urine Occult Blood Negative Urine Nitrite Negative Urine Bilirubin Negative Urine Urobilinogen Normal Ur Leukocyte Esterase 500 H Urine RBC 0 SEEN Urine WBC 5-10 SEEN Ur Squamous Epith Cells 0-5 SEEN Urine Bacteria RARE Urine Mucus 0 SEEN Urine Test Negative Radiography Diagnostic Testing: Clinical Impression(s) from Imaging Studies Abdomen/Pelvis CT 06/13/22 13:57 IMPRESSION: Fatty infiltration of the liver associated with hepatomegaly. Small bilateral pleural effusions associated with minimal bibasilar atelectasis and/or scarring. Electronically Signed: Yuly Silveira MD at 15:13 EST , Discharge Plan Triage Chief Complaint: Flank Pain ED Midlevel Provider: Romero Tirado ED Provider: Edyta Crews Dx/Rx/DC Orders Clinical Impression: Acute flank pain, Lumbar strain, Abdominal pain, Back pain Instructions: Abdominal Pain, ED Abdominal Pain Unkn Cause Fem, ED Flank Pain, Uncertain Cause Prescriptions: New cyclobenzaprine 10 mg tablet 10 mg PO TID PRN (Reason: Muscle Spasm) Qty: 14 0RF naproxen 500 mg tablet 500 mg PO BID Qty: 20 0RF No Action propranolol 10 mg tablet 10 mg PO BID 28 Days Qty: 56 levothyroxine 175 MCG tablet 150 mcg PO MOTUWETHFRSA enalapril maleate 20 MG tablet 10 mg PO DAILY benztropine 2 MG tablet 2 mg PO BID hydrochlorothiazide 25 MG tablet 25 mg PO DAILY metformin 500 MG tablet 500 mg PO BID sertraline 50 MG tablet 75 mg PO DAILY Insulin Basal Pump (Pt's Own) [Pump, Basal] 1 UNIT Pump See Protocol SQ CONT Protocol: 3. Sliding Scale Insulin Med Dosing Condition: 150-189 mg/dl = 1 unit Condition: 190-229 mg/dl = 2 units Condition: 230-269 mg/dl = 3 units Condition: 270-309 mg/dl = 4 units Condition: 310-349 mg/dl = 5 units Condition: 350-399 mg/dl = 6 units Condition: 400-449 mg/dl = 7 units Condition: Greater than 449 call physician Protocol Text: - Use for Total Daily Dose of Insulin 37-55 units - Obsese, infected, or steroid patients MEDIUM DOSING ALGORITHIM Invega Sustenna 234 mg/1.5 mL syringe 234 mg IM QMONTH Label Comments: Inject 234 mg intramuscularly every four weeks lamotrigine 200 mg tablet 200 mg PO DAILY levothyroxine 88 mcg tablet 88 mcg PO 1XD Rx Instructions: sundays only lurasidone [Latuda] 80 mg tablet 80 mg PO DAILY Primary Care Provider: Sapphire Nayak Referrals: Sapphire Nayak DO [Primary Care Provider] - 3-5 Days Disposition Disposition: Home, Self Care
[2022-06-13 14:45] LABS: Absolute Lymphocyte Count 1.58 X10^3/uL (0.83-4.51); Absolute Neutrophil Count 4.6 X10^3/uL (2.0-7.7); Basophil# 0.05 X10^3/uL; Basophil% 0.7 % (0-1); Eosinophil# 0.16 X10^3/uL; Eosinophils% 2.4 % (0-5); Hematocrit 37.6 % (37-47); Hemoglobin 12.4 g/dL (12.0-15.0); Lymphocyte # 1.58 X10^3/ul (0.83-4.51); Lymphocyte % 23.2 % (19-41); Mean Corpuscular Hgb 28.6 pg (27.0-32.0); Mean Corpuscular Volume 86.6 fL (81-99); Mean Platelet Vol. 10.4 fl (6.2-12.0); Monocyte% 5.9 % (0-10); NRBC Flagged by Analyzer 0 % (0-5); Neutrophil # 4.57 X10^3/uL (2.7-7.7); Neutrophil % 67.2 % (47-70); Platelet Count 270 K/mm3 (150-450); RBC Distribution Width CV 12.8 % (11.6-14.6); RBC Distribution Width SD 40.3 fl (35.1-43.9); Red Blood Count 4.34 M/mm3 (4.2-5.4); White Blood Count 6.8 K/mm3 (4.4-11.0)
[2022-06-13] MEDS: Ondansetron 4 MG/2 ML Vial IV (14:45)
[2022-06-13] MEDS: 0.9% Normal Saline 1,000 ML 1000 ML IV (14:45)
[2022-06-13 15:02] LABS: ALB/GLOB Ratio 1.2 RATIO (0.9-2.4); AST(SGOT) 18 U/L (15-37); Alanine Aminotransfer ALT/SGPT 30 U/L (13-56); Alkaline Phosphatase 80 U/L (45-117); Anion Gap 9 (5-15); BUN 10 mg/dL (7-18); BUN/Creat Ratio 9.1 RATIO (10-20); Calcium,Total 9.1 mg/dL (8.5-10.1); Chloride 99 mmol/L (98-107); EST Glomerular Filtration Rate 58 mL/min (>60); Est Glom Filt Rate - Afr Amer 70 mL/min (>60); Estimated Creatinine Clearance 64.13 ml/min; Globulin 3.2 g/dL (2.2-4.2); Glucose 107 mg/dL (74-106); Lipase 34 U/L (73-393); Potassium 3.8 mmol/L (3.5-5.1); Protein, Total 7.2 g/dL (6.4-8.2); Sodium Level 134 mmol/L (136-145)
[2022-06-13 15:27] LABS: Mucous, Urine 0 SEEN /hpf (<or=2+); Red Blood Cells-Urine 0 SEEN /hpf (0-5)
[2022-06-13 15:30] LABS: Color, Urine Yellow (Yellow); Glucose, Dipstick Normal (Normal); Ketone-Dipstick Negative (Negative); Leukocyte Esterase-Dipstick 500 /ul (Negative); Nitrite-Dipstick Negative (Negative); Occult Blood-Urine Negative /ul (Negative); Protein-Dipstick Negative (Negative); Urine Bilirubin Dipstick Negative (Negative); Urine Clarity Clear (Clear); Urine Urobilinogen Normal (Normal)
[2022-06-13 15:39] LABS: Bacteria RARE /hpf (None Seen); Squamous Epithelial Cells - UA 0-5 SEEN /hpf (5-10); White Blood Cells 5-10 SEEN /hpf (0-5)
[2022-06-13 15:40] LABS: Internal QC Validated? YES +Cl - CLEAR BKGD; Pregnancy, Urine Negative Negative
== END 2022-06-13 15:52 | disposition home or self-care (01) ==
PROVIDERS: Nurse Practitioner; Emergency Provider Emergency Medicine; PCP Family Medicine; Visit Provider Emergency Medicine
DX: R10.9 Unspecified abdominal pain (principal); E11.9 Type 2 diabetes mellitus without complications; S39.012A Strain of muscle, fascia and tendon of lower back, initial encounter; I10 Essential (primary) hypertension; Z79.899 Other long term (current) drug therapy; Z79.84 Long term (current) use of oral hypoglycemic drugs; Z87.891 Personal history of nicotine dependence; X58.XXXA Exposure to other specified factors, initial encounter; Z96.41 Presence of insulin pump (external) (internal)
CPT/HCPCS: 74176; 80053; 81001; 81025; 83690; 85025; 96361; 96374; 99283; J7030; A4216; J2405

== ENCOUNTER 2023-11-21 13:12 | Emergency (ER) | payer MEDICARE, MEDICAID, SELFPAY ==
[2023-11-21 13:13] VITALS: BP 157/85; PULSE 86; RESP 18; TEMP 36.6; O2SAT 97; BMI 39.1
[2023-11-21 14:12] VITALS: BP 155/82; PULSE 85; RESP 17; O2SAT 98
[2023-11-21 14:54] LABS: Absolute Lymphocyte Count 1.81 X10^3/uL (0.83-4.51); Absolute Neutrophil Count 5.3 X10^3/uL (2.0-7.7); Basophil# 0.08 X10^3/uL; Eosinophil# 0.31 X10^3/uL; Eosinophils% 3.9 % (0-5); Hematocrit 36.2 % (37-47); Lymphocyte # 1.81 X10^3/ul (0.83-4.51); Lymphocyte % 22.6 % (19-41); Mean Corp Hgb Conc 33.1 g/dL (32-36); Mean Corpuscular Hgb 28.6 pg (27.0-32.0); Mean Corpuscular Volume 86.2 fL (81-99); Mean Platelet Vol. 10.7 fl (6.2-12.0); Monocyte# 0.46 X10^3/uL; Monocyte% 5.7 % (0-10); NRBC Flagged by Analyzer 0 % (0-5); Neutrophil # 5.34 X10^3/uL (2.7-7.7); Neutrophil % 66.6 % (47-70); Platelet Count 278 K/mm3 (150-450); RBC Distribution Width CV 12.6 % (11.6-14.6); RBC Distribution Width SD 39.1 fl (35.1-43.9)
[2023-11-21 15:05] LABS: Amphetamine Urine VISTA NEGATIVE (<1000 ng/mL); Barbiturate Urine VISTA NEGATIVE (< 200 ng/mL); Benzodiazepine Urine VISTA NEGATIVE (< 200 ng/mL); Cocaine Urine VISTA NEGATIVE (< 300 ng/mL); Ecstacy Urine VISTA NEGATIVE (< 500 ng/mL); Internal QC Validated? YES +Cl - CLEAR BKGD; Methadone Urine VISTA NEGATIVE (< 300 ng/mL); PCP Urine VISTA NEGATIVE (< 25 ng/mL); Pregnancy, Serum, hCG Quali. NEGATIVE Negative; THC Urine VISTA NEGATIVE (< 50 ng/mL); Vista UDS pH Range 5
[2023-11-21 15:08] LABS: Alcohol, Blood (Medical)-Serum < 3.0 mg/dL
[2023-11-21 15:09] LABS: Anion Gap 8 (5-15); BUN 11 mg/dL (7-18); BUN/Creat Ratio 8.9 RATIO (10-20); Calcium,Total 9.2 mg/dL (8.5-10.1); Chloride 98 mmol/L (98-107); Creatinine, Serum 1.23 mg/dL (0.55-1.02); EST Glomerular Filtration Rate 50 mL/min (>60); Est Glom Filt Rate - Afr Amer 61 mL/min (>60); Estimated Creatinine Clearance 75.85 ml/min; Glucose 78 mg/dL (74-106); Potassium 3.7 mmol/L (3.5-5.1); Sodium Level 134 mmol/L (136-145)
--- NOTE | 2023-11-21 16:02 | NURSING ---
FAXED CHART CALLED CRISIS
--- NOTE | 2023-11-21 16:57 | EDS_ITS ---
HPI HPI - Psych History of Present Illness Chief Complaint: Suicidal Informant: patient Onset/Context/Timing Onset: Weeks Narrative Narrative: Patient presents secondary to suicidal ideation. She reports increasing thoughts of suicide over the past 1 month that relates with problems at home. She states her plan is to overdose on her insulin. She does report prior attempts with overdosing on her insulin. She has not been in a psych hospital in the past 4 years. She follows with Roxann Fletcher at [facility]. She last saw her approximately 1 month ago. There have been no recent medication changes. [facility] Medical History Suicidal overdose Schizoaffective disorder, bipolar type Thyroid disease Asthma Knee pain Diarrhea Severe headache Hay fever Fatigue Diabetes SOB (shortness of breath) HTN (hypertension) Home Medications ?Medication ?Instructions ?Recorded ?Last Taken ?Type benztropine 2 mg tablet 2 mg PO BID 02/12/14 Unknown History enalapril maleate 20 mg tablet 10 mg PO DAILY 02/12/14 Unknown History levothyroxine 175 mcg tablet 150 mcg PO MOTUWETHFRSA 02/12/14 Unknown History hydrochlorothiazide 25 mg tablet 25 mg PO DAILY 11/22/17 Unknown History propranolol 10 mg tablet 10 mg PO BID 28 days #56 tabs 03/26/18 Unknown History Insulin Basal Pump (Pt's Own) See Protocol SQ CONT 07/19/18 Unknown History [Pump, Basal] metformin 500 mg tablet 500 mg PO BID 07/19/18 Unknown History sertraline 50 mg tablet 75 mg PO DAILY 07/19/18 Unknown History lamotrigine 200 mg tablet 200 mg PO DAILY 06/13/22 Unknown History levothyroxine 88 mcg tablet 88 mcg PO 1XD 06/13/22 Unknown History lurasidone 80 mg tablet (Latuda) 80 mg PO DAILY 06/13/22 Unknown History albuterol sulfate 90 mcg/actuation 2 puff inhalation Q4H PRN PRN 11/21/23 Unknown History aerosol inhaler shortness of breath or wheezing cholecalciferol (vitamin D3) .ROUTE 11/21/23 Unknown History insulin glargine 100 unit/mL (3 40 unit subcut QHS 11/21/23 Unknown History mL) subcutaneous pen (Lantus Solostar U-100 Insulin) insulin lispro 100 unit/mL subcut 11/21/23 Unknown History subcutaneous solution (Humalog U-100 Insulin) magnesium PO 11/21/23 Unknown History paliperidone palm (3 month) 819 mg IM 11/21/23 Unknown History mg/2.63 mL intramuscular syringe (Invega Trinza) rosuvastatin 10 mg tablet 10 mg PO QHS 11/21/23 Unknown History Allergy/AdvReac Type Severity Reaction Status Date / Time amlodipine (From Norvasc) Allergy Unknown Verified 11/21/23 13:13 amoxicillin Allergy Hives Verified 11/21/23 13:13 grass pollen Allergy Unknown Verified 11/21/23 13:13 house dust Allergy Unknown Verified 11/21/23 13:13 phenylephrine (From Afrin Allergy Other Verified 11/21/23 13:13 Childrens (phenylephrin)) venlafaxine HCl (From Allergy Other Verified 11/21/23 13:13 Effexor) haloperidol (From Haldol) AdvReac Upset Verified 11/21/23 13:13 Stomach Family History Other Cancer Diabetes FH: mental illness Hypertension Thyroid disorder Surgical History H/O eye surgery Social History Smoking Status: Former smoker alcohol intake: never ROS ROS ED Constitutional Constitutional ED: Denies chills or fever(s) Eyes Eyes: Denies discharge from eye(s) ENT ENT ED: Denies discharge from eye(s), rhinorrhea or sore throat Cardiovascular Cardiovascular: Denies chest pain or palpitations Respiratory/Chest Respiratory/Chest: Denies cough or dyspnea Gastrointestinal Gastrointestinal: Denies abdominal pain, nausea or vomiting Genitourinary Genitourinary ED: Denies dysuria Musculoskeletal Musculoskeletal: Denies back pain or extremity pain Integumentary Reports Abrasions; Denies rash Neurologic Neurologic: Denies headache(s) or weakness Psychiatric Psychiatric: Reports depression and suicidal ideation Endocrine Endocrinology: Denies polydipsia or polyuria Allergic/Immunologic Allergic/Immunologic ED: Denies lip swelling or urticaria EXAM Physical Exam Const Vital Signs: 11/21/23 13:13 11/21/23 14:12 11/21/23 17:00 Temperature 97.8 F 96.5 F L Temperature Source Temporal Temporal Pulse Rate 86 85 74 Respiratory Rate 18 17 18 Blood Pressure 157/85 H 155/82 H 153/84 H Blood Pressure Mean 109 106 107 Pulse Ox 97 98 93 Oxygen Delivery Method Room Air Room Air Room Air 11/21/23 21:00 Temperature 97.8 F Temperature Source Oral Pulse Rate 72 Respiratory Rate 16 Blood Pressure 142/80 H Blood Pressure Mean 100 Pulse Ox 97 Oxygen Delivery Method Room Air Positive well nourished and well developed General Appearance ED: well developed HEENT Reports moist mucous membranes Eyes EOMs intact bilaterally Resp normal respiratory effort and clear to auscultation bilaterally Cardio Rate: regular rate Rhythm: regular rhythm GI non-tender Palpation: soft Extremity Extremity Narrative: Scabbed superficial linear abrasions to the bilateral lower extremities. Neuro oriented x3 and no sensory deficits noted Sensorium / Orientation: alert Motor Exam: strength 5/5 throughout Psych cooperative and affect normal Appearance: grossly normal, appropriate and well kempt Attitude: calm and engaged Activity / Motor Behavior: appropriate eye contact Mood & Affect: flat affect Thought Content: suicidality MDM MDM MDM Narrative Medical decision making narrative: Lab work will be obtained for psychiatric clearance. History & Record Review Discussion w/independent historian: Patient Lab Data Attestation: I reviewed the patient's lab results. Labs: Laboratory Results - last 24 hr 11/21/23 11/21/23 11/21/23 14:40 17:49 21:04 WBC 8.0 RBC 4.20 Hgb 12.0 Hct 36.2 L MCV 86.2 MCH 28.6 MCHC 33.1 RDW Std Deviation 39.1 RDW Coeff of Giuseppe 12.6 Plt Count 278 MPV 10.7 Immature Gran % (Auto) 0.200 Neut % (Auto) 66.6 Lymph % (Auto) 22.6 [place] % (Auto) 5.7 Eos % (Auto) 3.9 Baso % (Auto) 1.0 Absolute Neuts (auto) 5.3 Absolute Lymphs (auto) 1.81 Nucleated RBC % 0 Sodium 134 L Potassium 3.7 Chloride 98 Carbon Dioxide 28.0 Anion Gap 8 BUN 11 Creatinine 1.23 H Estim Creat Clear Calc 75.85 Est GFR (MDRD) Af Amer 61 Est GFR (MDRD) Non-Af 50 L BUN/Creatinine Ratio 8.9 L Glucose 78 Calcium 9.2 Serum , Qual NEGATIVE Urine Opiates Screen NEGATIVE Urine Methadone Screen NEGATIVE Ur Barbiturates Screen NEGATIVE Ur Phencyclidine Scrn NEGATIVE Ur Amphetamines Screen NEGATIVE MDMA (Ecstasy) Screen NEGATIVE U Benzodiazepines Scrn NEGATIVE Urine Cocaine Screen NEGATIVE U Cannabinoids Screen NEGATIVE Ur Drug Screen Comment Ethyl Alcohol < 3.0 POC Glucose 221 H > 500 H* Treatment and Re-Evaluation Narrative: CBC was normal white count 8.0 with normal differential. Hemoglobin is 12.0. Chemistry studies remarkable only for creatinine 1.23. This is consistent with her prior values. test is negative. Urine tox screen is negative. EtOH is less than 3. Patient is seen and evaluated by staff in the counseling center. Staff from the counseling center agrees patient would benefit from placement and treatment. Patient has been accepted at [facility]. Her normal home medications have been continued for tonight. Transport will be available at 7 AM tomorrow morning. Discharge Plan Triage Chief Complaint: Suicidal ED Provider: Susana Jett Dx/Rx/DC Orders Clinical Impression: Suicidal ideation Prescriptions: No Action propranolol 10 mg tablet 10 mg PO BID 28 Days Qty: 56 levothyroxine 175 MCG tablet 150 mcg PO MOTUWETHFRSA Patient Comments: UNSURE OF DOSAGE enalapril maleate 20 MG tablet 10 mg PO DAILY Patient Comments: PATIENT STATES SHE TAKES A WHOLE TABLET BUT DOES NOT KNOW THE DOSAGE benztropine 2 MG tablet 2 mg PO BID hydrochlorothiazide 25 MG tablet 25 mg PO DAILY metformin 500 MG tablet 500 mg PO BID sertraline 50 MG tablet 75 mg PO DAILY Insulin Basal Pump (Pt's Own) [Pump, Basal] 1 UNIT Pump See Protocol SQ CONT Protocol: 3. Sliding Scale Insulin Med Dosing Condition: 150-189 mg/dl = 1 unit Condition: 190-229 mg/dl = 2 units Condition: 230-269 mg/dl = 3 units Condition: 270-309 mg/dl = 4 units Condition: 310-349 mg/dl = 5 units Condition: 350-399 mg/dl = 6 units Condition: 400-449 mg/dl = 7 units Condition: Greater than 449 call physician Protocol Text: - Use for Total Daily Dose of Insulin 37-55 units - Obsese, infected, or steroid patients MEDIUM DOSING ALGORITHIM lamotrigine 200 mg tablet 200 mg PO DAILY levothyroxine 88 mcg tablet 88 mcg PO 1XD Patient Comments: UNSURE OF DOSAGE Rx Instructions: sundays only lurasidone [Latuda] 80 mg tablet 80 mg PO DAILY Invega Trinza 819 mg/2.63 mL syringe IM rosuvastatin 10 mg tablet 10 mg PO QHS magnesium PO cholecalciferol (vitamin D3) .ROUTE albuterol sulfate 90 mcg/actuation HFA aerosol inhaler 2 puff inhalation Q4H PRN PRN (Reason: shortness of breath or wheezing) insulin glargine [Lantus Solostar U-100 Insulin] 100 unit/mL (3 mL) insulin pen 40 unit subcut QHS insulin lispro [Humalog U-100 Insulin] 100 unit/mL solution subcut Primary Care Provider: Sapphire Nayak Referrals: Sapphire Nayak DO [Primary Care Provider] - Print Language: Kazakh Disposition Disposition: Psychiatric Hospital or Unit Discharge Location: [facility]
--- NOTE | 2023-11-21 16:58 | NURSING ---
CRISIS IN ROOM
[2023-11-21 17:00] VITALS: BP 153/84; PULSE 74; RESP 18; TEMP 35.8; O2SAT 93
[2023-11-21 18:11] LABS: Bedside Glucose 221 mg/dL (74-106)
[2023-11-21 21:00] VITALS: BP 142/80; PULSE 72; RESP 16; TEMP 36.6; O2SAT 97
[2023-11-21 21:22] LABS: Bedside Glucose > 500 mg/dL (74-106)
[2023-11-21] MEDS: Propranolol 10 MG Tablet PO (22:08)
[2023-11-21] MEDS: Insulin Glargine-YFGN 100 UNIT/ML Pen 40 UNIT SC (22:08)
[2023-11-21] MEDS: Atorvastatin Calcium 20 MG Tablet PO (22:09)
[2023-11-21] MEDS: Benztropine 2 MG Tablet PO (22:09)
[2023-11-21] MEDS: metFORMIN HCl 500 MG Tablet PO (22:09)
[2023-11-21] MEDS: Insulin Lispro 100 UNIT/ML INSULN.PEN SC (22:13)
[2023-11-22] MEDS: Insulin Lispro 100 UNIT/ML INSULN.PEN 10 UNIT SC (00:32)
[2023-11-22 00:33] LABS: Bedside Glucose > 500 mg/dL (74-106)
[2023-11-22 01:00] VITALS: BP 159/85; PULSE 74; RESP 16; TEMP 36.7; O2SAT 97
--- NOTE | 2023-11-22 01:55 | ED.RN ---
BS 431, Dr Huber made aware, no new orders at this time
[2023-11-22 02:11] LABS: Bedside Glucose 431 mg/dL (74-106)
--- NOTE | 2023-11-22 04:15 | ED.RN ---
BS 431, Dr Huber made aware, no new orders given
[2023-11-22 04:29] LABS: Bedside Glucose 261 mg/dL (74-106)
[2023-11-22 05:00] VITALS: BP 158/92; PULSE 69; RESP 16; TEMP 36.7; O2SAT 96
[2023-11-22] MEDS: Ondansetron ODT 4 MG Tablet 8 MG PO (05:13)
[2023-11-22 05:18] VITALS: BP 158/92; PULSE 69; RESP 16; TEMP 36.7; O2SAT 96
--- NOTE | 2023-11-22 05:41 | ED.RN ---
Attempted to call for report, was transferred 4 times and left on hold for 10 minutes.
--- NOTE | 2023-11-22 07:18 | ED.RN ---
report called to Brianda at [facility] at this time.
[2023-11-29 08:04] LABS: Bedside Glucose 188 mg/dL (74-106)
== END 2023-11-22 07:21 ==
PROVIDERS: Emergency Provider Emergency Medicine; PCP Family Medicine; Visit Provider Emergency Medicine
DX: R45.851 Suicidal ideations (principal); E11.9 Type 2 diabetes mellitus without complications; Z79.4 Long term (current) use of insulin; I10 Essential (primary) hypertension; Z87.891 Personal history of nicotine dependence; Z79.51 Long term (current) use of inhaled steroids; Z79.899 Other long term (current) drug therapy; Z79.84 Long term (current) use of oral hypoglycemic drugs
CPT/HCPCS: 80048; 80307; 82077; 82962; 84703; 85025; 99285